=== PATIENT | female | born 2000 | race Caucasian/White ===

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

== ENCOUNTER 2018-01-05 06:02 | Inpatient (IN) ==
[2018-01-05] MEDS ORDERED: Oxytocin 30 Units/500ml Premix 30 UNITS/500 ML BAG IV.SIG PRN (07:05)
[2018-01-05] MEDS ORDERED: Sodium Chlor 0.9% Inj 500 ML IV.SIG PRN (07:06)
[2018-01-05] MEDS ORDERED: Sod Chloride 0.9% Inj 1,000 ML IV.CONT PRN (07:06)
[2018-01-05] MEDS ORDERED: Naloxone Inj 0.4 MG/ML Vial IV.PUSH PRN ×2 (07:06→14:53)
[2018-01-05] MEDS ORDERED: Oxytocin 30 Units/500ml Premix 30 UNITS/500 ML BAG IV.SIG ONE (07:06)
[2018-01-05] MEDS ORDERED: fentaNYL Citrate Inj 100 MCG/2 ML Ampul IV.PUSH PRN ×2 (07:06)
[2018-01-05] MEDS ORDERED: Citric Acid/Sodium Citrate Liq 30 ML UDC PO SCH (07:15)
[2018-01-05 07:39] LABS: Baso % (Auto) 0.1 % (0.0-2.0); Eos # (Auto) 0.1 th/mm3 (0.0-0.4); Eos % (Auto) 0.5 % (0.0-4.0); Hemoglobin 11.1 gm/dL (11.6-15.3); Lymph % (Auto) 15.4 % (9.0-44.0); Mean Corpuscular HGB Conc 32.6 % (32.0-36.0); Mean Corpuscular Hemoglobin 26.7 pg (27.0-34.0); Mean Corpuscular Volume 81.9 fL (80.0-100.0); Mean Platelet Volume 8.7 fL (7.0-11.0); Mono # (Auto) 0.7 th/mm3 (0.0-0.9); Mono % (Auto) 5.5 % (0.0-8.0); Neut # (Auto) 10.4 th/mm3 (1.8-7.7); Neut % (Auto) 78.5 % (16.0-70.0); Platelet Count 284 th/mm3 (150-450); Red Blood Count 4.16 mil/mm3 (4.00-5.30); Red Cell Distribution Width 14.6 % (11.6-17.2); White Blood Count 13.3 th/mm3 (4.0-11.0)
[2018-01-05 07:52] LABS: Bacteria,Urine Occasional /hpf; Bilirubin,Urine Negative (Negative); Clarity,Urine Hazy (Clear); Color,Urine Yellow (Yellw/Straw); Glucose,Urine (UA) Negative (Negative); Leukocyte Esterase,Urine Negative (Negative); Mucus,Urine Few /lpf (Occasional); Nitrite,Urine Negative (Negative); Specific Gravity,Urine 1.023 (1.002-1.035); Squamous Epithelial Cell,Urine 7 /hpf (0-5)
[2018-01-05 08:01] LABS: Amphetamine Urine With Conf Neg (Neg); Benzodiazepine Urine With Conf Neg (Neg)
--- NOTE | 2018-01-05 08:02 | P.OBLABOR ---
Subjective Interval history: pt comfortable Objective Vital Signs: Vital Signs - 8 hr 01/05/18 06:30 01/05/18 07:06 Temperature 98.2 F Pulse Rate 122 H 106 H Respiratory Rate 18 Blood Pressure 152/88 H 146/95 H Objective: Pelvic Exam: Cervix: [-] Dilatation: [-] 3 Effacement: [-] 50 Station: [-] -1 Presentation: [-] vtx Membranes: [intact or ruptured] arom clear Uterine Contractions: [-] rare FHT's: Category: [-] 1 Baseline: [-] 140 Reactive: [-] R Variability: [-] good Decels: [-] Weeks Gestation: 40 Patient Started Active Labor: Yes Active Labor Start Date: 01/05/18 Active Labor Start Time: 08:01 Medical Induction of Labor: Yes Medical Induction Start Date: 01/05/18 Medical Induction Start Time: 08:01 Artificial Rupture of Membrane: Yes Artificial ROM Date: 01/05/18 Artificial ROM Time: 08:01 Assessment and Plan - Diagnosis (1) Code(s): Z34.90 - Encounter for supervision of normal , unspecified, unspecified trimester Status: Acute - Plan IUP at term, arom clear, pitocin aug prn, analgesia prn anticipate Discharge Planning: routine - Attending Attestation pt seen by mt (1) Qualifiers: Weeks of gestation: 40 weeks Qualified Code(s): Z3A.40 - 40 weeks gestation of
--- NOTE | 2018-01-05 08:50 | MH ---
cc: Samantha Johnston MD DATE OF ADMISSION: 01/05/2018 HISTORY OF PRESENT ILLNESS: She is 17 years old, 1, para 0. Intrauterine at 40 weeks with favorable cervix. care has been with [facility]. Her GCT was normal. Group B strep was negative. PAST OBSTETRIC HISTORY: She is 1, para 0. PAST GYNECOLOGICAL HISTORY: She denies. PAST MEDICAL HISTORY: She has a history of depression at the age of 14, has been taking Zoloft in the . PAST SURGICAL HISTORY: She denies. SOCIAL HISTORY: She denies toxic habits. MEDICATIONS: She has been taking vitamins and Zoloft, which was 50 mg. ALLERGIES: SHE IS ALLERGIC TO KEFLEX AND SULFA. PHYSICAL EXAMINATION: VITAL SIGNS: Stable. Blood pressure was 130/68 in the office. HEAD, HEART, CHEST, LUNG: Exams are within normal limits. ABDOMEN: Soft, nontender, gravid. PELVIC: Vaginal exam in the office was 3 cm dilated, 50% effaced, -1 station. EXTREMITIES: No edema, cyanosis, or clubbing. Nontender. ASSESSMENT: She is 17 years old, 1, para 0, intrauterine at 40 weeks. PLAN: Plan is to admit her for artificial rupture of membranes, followed by Pitocin augmentation of labor, analgesia as needed. Anticipate vaginal delivery. MD JULIAN Perales/lisa , 08:34 AM , 08:38 AM
[2018-01-05 09:23] LABS: Glomerular Filtration Rate Greater Than 89 mL/min (>89)
[2018-01-05 09:27] LABS: Alanine Aminotransferase 15 U/L (9-42); Alkaline Phosphatase 190 U/L (45-117); Total Protein 7.1 g/dL (6.4-8.2)
[2018-01-05 09:30] LABS: Albumin 2.9 g/dL (3.4-5.0); Anion Gap 12 meq/L (5-15); Aspartate Aminotransferase 25 U/L (16-38); Blood Urea Nitrogen 6 mg/dL (7-18); Calcium 8.2 mg/dL (8.5-10.1); Carbon Dioxide 22.1 meq/L (21.0-32.0); Chloride 103 meq/L (98-107); Glucose,Random 87 mg/dL (74-106); Potassium 3.5 meq/L (3.5-5.1); Sodium 137 meq/L (136-145)
[2018-01-05] MEDS ORDERED: fentaNYL 2MCG-Bupiv 0.125% Epi 150 ML EPIDURAL ONE (10:02)
[2018-01-05] MEDS ORDERED: Lidocaaine 1.5%/Epinephrine 1:200,000 PF Inj 5 ML Amp ONE (10:33)
[2018-01-05] MEDS ORDERED: fentaNYL Citrate Inj 100 MCG/2 ML Ampul EPIDURAL ONE (11:59)
[2018-01-05] MEDS ORDERED: fentaNYL 2MCG-Bupiv 0.125% Epi 150 ML EPIDURAL PRN (11:59)
--- NOTE | 2018-01-05 14:52 | P.OBDELI ---
Weeks Gestation: 40 Patient Started Active Labor: Yes Active Labor Start Date: 01/05/18 Active Labor Start Time: 08:00 Medical Induction of Labor: Yes Medical Induction Start Date: 01/05/18 Medical Induction Start Time: 08:00 Artificial Rupture of Membrane: Yes Artificial ROM Date: 01/05/18 Anesthesia: Epidural Episiotomy: none Vaginal Delivery: Normal Presentation: Occiput anterior Nuchal Cord: None Delayed Cord Clamping (45 sec): Yes Placenta: Spontaneous delivery Laceration: 1 deg Repair: Chromic interrupted Estimated blood loss (mL): 250 Infant: Male ( 9/9)
[2018-01-05] MEDS ORDERED: Witch Hazel 50%/Glyderin 12.5% 40 Pad Jar RECTAL PRN (14:53)
[2018-01-05] MEDS ORDERED: Benzocaine 20% Top Spray 60 ML Can TOPICAL PRN (14:53)
[2018-01-05] MEDS ORDERED: Oxytocin 30 Units/500ml Premix 30 UNITS/500 ML BAG IV.CONT PRN (14:53)
[2018-01-05] MEDS ORDERED: Zolpidem Tartrate 5 MG Tablet PO PRN (14:53)
[2018-01-05] MEDS ORDERED: Bisacodyl 10 MG Supp RECTAL PRN (14:53)
[2018-01-05] MEDS ORDERED: Diphtheria/Tetanus/Pertussis Vaccine Inj 0.5 ML Syringe IM ONE (16:00)
[2018-01-05] MEDS ORDERED: Measles/Mumps/Rubella Vaccine Inj 0.5 ML Vial SQ ONE (16:00)
[2018-01-05] MEDS: Acetaminophen 325 MG Tablet PO PRN (23:59)
--- NOTE | 2018-01-06 08:16 | P.PNOB ---
Subjective Post day: 1 Interval history: PPD#1; S/P , Breast and bottle feeding, Will take her ZOLOFT from home, 50mg daily. Mood stable; anticipate discharge PPD#2 Objective Vital Signs/I&O: Vital Signs 01/05/18 08:46 01/05/18 09:34 01/05/18 09:35 Temperature 98.3 F Pulse Rate 101 H 87 Respiratory Rate 18 Blood Pressure 136/81 139/85 01/05/18 10:00 01/05/18 10:01 01/05/18 10:10 Temperature Pulse Rate 86 95 H 95 H Respiratory Rate Blood Pressure 131/94 H 01/05/18 10:25 01/05/18 10:35 01/05/18 10:40 Temperature Pulse Rate 87 88 99 H Respiratory Rate Blood Pressure 109/61 01/05/18 10:47 01/05/18 10:51 01/05/18 10:55 Temperature Pulse Rate 94 H 82 73 Respiratory Rate Blood Pressure 126/82 122/68 127/68 01/05/18 11:00 01/05/18 11:01 01/05/18 11:11 Temperature Pulse Rate 74 85 87 Respiratory Rate Blood Pressure 124/67 124/77 01/05/18 11:25 01/05/18 11:27 01/05/18 11:55 Temperature Pulse Rate 96 H 91 H Respiratory Rate 17 Blood Pressure 133/77 134/78 01/05/18 12:00 01/05/18 12:01 01/05/18 12:10 Temperature Pulse Rate 94 H 95 H 97 H Respiratory Rate Blood Pressure 104/48 L 01/05/18 12:25 01/05/18 12:30 01/05/18 12:35 Temperature 99.0 F Pulse Rate 93 H 92 H 96 H Respiratory Rate 17 Blood Pressure 144/90 H 152/91 H 01/05/18 12:40 01/05/18 12:55 01/05/18 13:01 Temperature Pulse Rate 94 H 95 H 94 H Respiratory Rate Blood Pressure 148/61 H 01/05/18 13:05 01/05/18 13:10 01/05/18 13:15 Temperature Pulse Rate 88 93 H 95 H Respiratory Rate Blood Pressure 01/05/18 13:28 01/05/18 14:15 01/05/18 14:45 Temperature Pulse Rate 93 H 104 H 101 H Respiratory Rate Blood Pressure 112/54 L 122/62 01/05/18 14:50 01/05/18 14:55 01/05/18 15:00 Temperature 98.1 F Pulse Rate 109 H 101 H Respiratory Rate 17 Blood Pressure 139/77 139/89 01/05/18 15:15 01/05/18 15:31 01/05/18 15:43 Temperature Pulse Rate 92 H Respiratory Rate 18 17 Blood Pressure 131/70 01/05/18 15:46 01/05/18 16:00 01/05/18 16:13 Temperature Pulse Rate 104 H 91 H Respiratory Rate 15 Blood Pressure 103/68 116/71 01/05/18 16:45 01/05/18 18:00 01/05/18 20:00 Temperature 98.9 F 97.9 F Pulse Rate 92 H 105 H 120 H Respiratory Rate 16 18 Blood Pressure 126/74 138/81 129/73 01/06/18 08:00 Temperature 97.9 F Pulse Rate 86 Respiratory Rate 20 Blood Pressure 131/75 Intake & Output 01/05/18 01/06/18 01/06/18 18:59 06:59 18:59 Weight 86 kg Other: Weight On Admission 86 kg Result Diagrams: 01/05/18 06:30 01/05/18 06:30 Objective Remarks: GENERAL: Well-nourished, well-developed patient. CARDIOVASCULAR: Regular rate and rhythm without murmurs, gallops, or rubs. RESPIRATORY: Breath sounds equal bilaterally. No accessory muscle use. ABDOMEN/GI: Abdomen soft, non-tender. Fundus: Firm, non-tender at umbilicus. GENITOURINARY: Light to moderate bleeding. EXTREMITIES: No cyanosis or edema, non-tender, without signs of DVT. Medications and IVs: Active Medications Acetaminophen (Tylenol) 650 mg PO Q4H PRN PRN Reason: PAIN SCALE 1 TO 2 Last Admin: 01/05/18 23:59 Dose: 650 mg Al Hydroxide/Mg Hydroxide (Milk Of Magnparis Liq) 30 ml PO Q12H PRN PRN Reason: Mild Constipation Benzocaine (Americaine 20% [place]) 1 spray TOPICAL Q4H PRN PRN Reason: For Perineum Discomfort Bisacodyl (Dulcolax Supp) 10 mg RECTAL DAILY PRN PRN Reason: SEVERE CONSITIPATION Citric Acid/Sodium Citrate (Sodium Citrate/Citric Acid Liq) 30 ml PO [employer] [facility] Stop: 01/09/18 07:14 Ephedrine Sulfate (Ephedrine/Ns Syringe) 10 mg IV.PUSH UNSCH PRN PRN Reason: SEE LABEL COMMENTS Stop: 01/06/18 12:00 Fentanyl Citrate (Fentanyl Inj) 50 mcg IV.PUSH Q1H PRN PRN Reason: Pain Scale 3 - 5 Fentanyl Citrate (Fentanyl Inj) 100 mcg IV.PUSH Q1H PRN PRN Reason: PAIN SCALE 6 TO 10 Last Admin: 01/05/18 09:38 Dose: 100 mcg Oxytocin (Pitocin 30 Units/Ns 500 Ml Premix) 30 units in 500 mls @ 2 mls/hr IV.SIG TITRATE PRN; Protocol PRN Reason: For induction of labor Last Admin: 01/05/18 08:50 Dose: 2 milliunit/min, 2 mls/hr Lactated Ringer's (Lr 1000 Ml Inj) 1,000 mls @ 3,000 mls/hr IV.SIG UNSCH PRN PRN Reason: compromise or epidural Last Admin: 01/05/18 12:45 Dose: 3,000 mls/hr Sodium Chloride (Ns Inj) 500 mls @ 1,000 mls/hr IV.SIG UNSCH PRN PRN Reason: SEE LABEL COMMENTS Sodium Chloride (Ns Inj) 1,000 mls @ 100 mls/hr IV.CONT .Q10H PRN PRN Reason: SEE LABEL COMMENTS Lactated Ringer's (Lr 1000 Ml Inj) 1,000 mls @ 125 mls/hr IV.CONT .Q8H [facility] Last Admin: 01/05/18 17:16 Dose: Not Given Fentanyl/Bupivacaine/Sodium Chlor (Fentanyl 2 Mcg-Bupiv 0.125% Epi) 150 mls @ 12 mls/hr EPIDURAL PRN PRN PRN Reason: for Labor Pain Last Admin: 01/05/18 12:46 Dose: 12 mls/hr Oxytocin (Pitocin 30 Units/Ns 500 Ml Premix) 30 units in 500 mls @ 100 mls/hr IV.CONT UNSCH PRN PRN Reason: Heavy bleeding Ibuprofen (Motrin) 800 mg PO Q8H PRN PRN Reason: For Cramping Last Admin: 01/05/18 23:59 Dose: 800 mg Lactulose (Lactulose Liq) 30 ml PO DAILY PRN PRN Reason: SEVERE CONSITIPATION Lidocaine HCl (Xylocaine 1% Inj) 0.1 ml I-DERMAL PRN PRN PRN Reason: For IV start Stop: 01/08/18 07:05 Lidocaine HCl (Xylocaine 1% Inj) 10 ml INFILTRATN PRN PRN PRN Reason: For episiotomy repair Stop: 01/07/18 07:05 Mineral Oil (Muri-Lube Oil) 10 ml TOPICAL PRN PRN PRN Reason: PRN perineal massage Miscellaneous Information (Misc Information) 1 each OTHER UNSCH PRN PRN Reason: SEE LABEL COMMENTS Stop: 01/06/18 12:00 Miscellaneous Information (Misc Information) 1 each OTHER UNSCH PRN PRN Reason: SEE LABEL COMMENTS Stop: 01/06/18 12:00 Naloxone HCl (Narcan Inj) 0.1 mg IV.PUSH Q2M PRN PRN Reason: for opiate reversal Naloxone HCl (Narcan Inj) 0.1 mg IV.PUSH Q2M PRN PRN Reason: for opiate reversal Ondansetron HCl (Zofran Inj) 4 mg IV.PUSH Q6H PRN PRN Reason: NAUSEA OR VOMITING Ondansetron HCl (Zofran Odt) 4 mg PO Q6H PRN PRN Reason: NAUSEA OR VOMITING Vit/Calcium/Iron/Folic Ac (Stuartnatal Plus 3) 1 tab PO DAILY YUE Senna/Docusate Sodium (Marixa-Colace) 1 tab PO BID YUE Last Admin: 01/06/18 00:00 Dose: Not Given Sennosides (Senokot) 17.2 mg PO Q12H PRN PRN Reason: Moderate Constipation Sodium Chloride (Ns Flush) 2 ml IV.FLUSH BID YUE Sodium Chloride (Ns Flush) 2 ml IV.FLUSH PRN PRN PRN Reason: FLUSH AFTER USING IV ACCESS Witch Corine/Glycerin (Tucks Pads) 1 applicatio RECTAL QID PRN PRN Reason: HEMORRHOIDS Zolpidem Tartrate (Ambien) 5 mg PO HS PRN PRN Reason: SLEEP Assessment and Plan - Diagnosis (1) Code(s): Z34.90 - Encounter for supervision of normal , unspecified, unspecified trimester Status: Acute - Plan PPD#1, Stable, transitioning well, will use her ZOLOFT 50 mg daily; Plan discharge tomorrow, PPD#2 Discharge Planning: routine; PPD#2 (1) Qualifiers: Weeks of gestation: 40 weeks Qualified Code(s): Z3A.40 - 40 weeks gestation of
[2018-01-06] MEDS: Senna/Docusate Sodium 8.6/50 MG Tablet PO SCH ×3 (09:31→22:17)
[2018-01-06] MEDS: Prenatal Vit/Ca/Iron/Folic Acid Tablet PO SCH (09:31)
[2018-01-06] MEDS: Acetaminophen 325 MG Tablet PO PRN (09:32)
[2018-01-06] MEDS: guaiFENesin 600 MG ER Tablet PO SCH (21:13)
--- NOTE | 2018-01-07 07:00 | P.PNOB ---
Subjective Post day: 1 Interval history: Doing well, pain controlled, ambulating without difficulty, voiding spontaneously, vaginal bleeding less than menses Objective Vital Signs/I&O: Vital Signs 01/06/18 08:00 01/06/18 20:00 Temperature 97.9 F 98.3 F Pulse Rate 86 104 H Respiratory Rate 20 18 Blood Pressure 131/75 138/93 H Result Diagrams: 01/05/18 06:30 01/05/18 06:30 Objective Remarks: GENERAL: Well-nourished, well-developed patient. CARDIOVASCULAR: Regular rate and rhythm without murmurs, gallops, or rubs. RESPIRATORY: Breath sounds equal bilaterally. No accessory muscle use. ABDOMEN/GI: Abdomen soft, non-tender. Fundus: Firm, non-tender at umbilicus. GENITOURINARY: Light to moderate bleeding. EXTREMITIES: No cyanosis or edema, non-tender, without signs of DVT. Medications and IVs: Active Medications Acetaminophen (Tylenol) 650 mg PO Q4H PRN PRN Reason: PAIN SCALE 1 TO 2 Last Admin: 01/06/18 09:32 Dose: 650 mg Al Hydroxide/Mg Hydroxide (Milk Of Magnesia Liq) 30 ml PO Q12H PRN PRN Reason: Mild Constipation Benzocaine (Americaine 20% [place]) 1 spray TOPICAL Q4H PRN PRN Reason: For Perineum Discomfort Bisacodyl (Dulcolax Supp) 10 mg RECTAL DAILY PRN PRN Reason: SEVERE CONSITIPATION Citric Acid/Sodium Citrate (Sodium Citrate/Citric Acid Liq) 30 ml PO CULTURIST [facility] Stop: 01/09/18 07:14 Fentanyl Citrate (Fentanyl Inj) 50 mcg IV.PUSH Q1H PRN PRN Reason: Pain Scale 3 - 5 Fentanyl Citrate (Fentanyl Inj) 100 mcg IV.PUSH Q1H PRN PRN Reason: PAIN SCALE 6 TO 10 Last Admin: 01/05/18 09:38 Dose: 100 mcg Guaifenesin (Mucinex Er) 600 mg PO BID [facility] Last Admin: 01/06/18 21:13 Dose: 600 mg Oxytocin (Pitocin 30 Units/Ns 500 Ml Premix) 30 units in 500 mls @ 2 mls/hr IV.SIG TITRATE PRN; Protocol PRN Reason: For induction of labor Last Admin: 01/05/18 08:50 Dose: 2 milliunit/min, 2 mls/hr Lactated Ringer's (Lr 1000 Ml Inj) 1,000 mls @ 3,000 mls/hr IV.SIG UNSCH PRN PRN Reason: compromise or epidural Last Admin: 01/05/18 12:45 Dose: 3,000 mls/hr Sodium Chloride (Ns Inj) 500 mls @ 1,000 mls/hr IV.SIG UNSCH PRN PRN Reason: SEE LABEL COMMENTS Sodium Chloride (Ns Inj) 1,000 mls @ 100 mls/hr IV.CONT .Q10H PRN PRN Reason: SEE LABEL COMMENTS Lactated Ringer's (Lr 1000 Ml Inj) 1,000 mls @ 125 mls/hr IV.CONT .Q8H YUE Last Admin: 01/07/18 05:21 Dose: Not Given Fentanyl/Bupivacaine/Sodium Chlor (Fentanyl 2 Mcg-Bupiv 0.125% Epi) 150 mls @ 12 mls/hr EPIDURAL PRN PRN PRN Reason: for Labor Pain Last Admin: 01/05/18 12:46 Dose: 12 mls/hr Oxytocin (Pitocin 30 Units/Ns 500 Ml Premix) 30 units in 500 mls @ 100 mls/hr IV.CONT UNSCH PRN PRN Reason: Heavy bleeding Ibuprofen (Motrin) 800 mg PO Q8H PRN PRN Reason: For Cramping Last Admin: 01/06/18 20:51 Dose: 800 mg Lactulose (Lactulose Liq) 30 ml PO DAILY PRN PRN Reason: SEVERE CONSITIPATION Lidocaine HCl (Xylocaine 1% Inj) 0.1 ml I-DERMAL PRN PRN PRN Reason: For IV start Stop: 01/08/18 07:05 Lidocaine HCl (Xylocaine 1% Inj) 10 ml INFILTRATN PRN PRN PRN Reason: For episiotomy repair Stop: 01/07/18 07:05 Mineral Oil (Muri-Lube Oil) 10 ml TOPICAL PRN PRN PRN Reason: PRN perineal massage Naloxone HCl (Narcan Inj) 0.1 mg IV.PUSH Q2M PRN PRN Reason: for opiate reversal Naloxone HCl (Narcan Inj) 0.1 mg IV.PUSH Q2M PRN PRN Reason: for opiate reversal Ondansetron HCl (Zofran Inj) 4 mg IV.PUSH Q6H PRN PRN Reason: NAUSEA OR VOMITING Ondansetron HCl (Zofran Odt) 4 mg PO Q6H PRN PRN Reason: NAUSEA OR VOMITING Vit/Calcium/Iron/Folic Ac (Stuartnatal Plus 3) 1 tab PO DAILY [facility] Last Admin: 01/06/18 09:31 Dose: 1 tab Pseudoephedrine HCl (Sudafed) 30 mg PO Q6H PRN PRN Reason: NASAL CONGESTION Last Admin: 01/07/18 05:29 Dose: 30 mg Senna/Docusate Sodium (Marixa-Colace) 1 tab PO BID [facility] Last Admin: 01/06/18 22:17 Dose: Not Given Sennosides (Senokot) 17.2 mg PO Q12H PRN PRN Reason: Moderate Constipation Sodium Chloride (Ns Flush) 2 ml IV.FLUSH BID [facility] Last Admin: 01/06/18 22:17 Dose: Not Given Sodium Chloride (Ns Flush) 2 ml IV.FLUSH PRN PRN PRN Reason: FLUSH AFTER USING IV ACCESS Witch Corine/Glycerin (Tucks Pads) 1 applicatio RECTAL QID PRN PRN Reason: HEMORRHOIDS Zolpidem Tartrate (Ambien) 5 mg PO HS PRN PRN Reason: SLEEP Assessment and Plan - Diagnosis (1) Code(s): Z34.90 - Encounter for supervision of normal , unspecified, unspecified trimester Status: Acute - Plan 17-year-old status post at 40 weeks 1. day #2, meeting milestones, discharge home today, discussed precautions expectations and follow-up. - male status post circumcision 2. Depression/anxiety: Continue home Zoloft, follow-up with mood check in 1-2 weeks. (1) Qualifiers: Weeks of gestation: 40 weeks Qualified Code(s): Z3A.40 - 40 weeks gestation of
--- NOTE | 2018-01-07 07:29 | P.DS ---
Date of admission: 01/05/18 06:02 Primary care physician: Clotilde Primary Care Physician Brief History from admission: 17 yo who presented for elective IOL had a at 40w, course uncomplicated DS: Diagnosis - Discharge Diagnosis (1) Status: Acute DS: Medications - Discharge Medications Prescriptions: ibuprofen 800 mg PO Q8H PRN #30 tab PRN Reason: For Cramping DS: Summary Hospital Course: see brief history - Time Spent with Patient Total time spent providing and/or coordinating discharge services: Less than 30 minutes Exam Vital signs: Vital Signs 01/06/18 08:00 01/06/18 20:00 Temperature 97.9 F 98.3 F Pulse Rate 86 104 H Respiratory Rate 20 18 Blood Pressure 131/75 138/93 H Results Procedures completed during hospitalization: Discharge Plan - Discharge Disposition Patient Disposition: 01 Discharge Home - Discharge Condition Condition: Good - Discharge Order Discharge Orders: Discharge Order (Routine); Ordered 01/07/18 Ordered By: Raghu Houser - Physicians Team Primary Care Provider: Primary Clotilde Morales Attending Provider: Samantha Johnston Rxs /Orders / Referrals /Forms Prescriptions: New ibuprofen 800 mg Tablet 800 mg PO Q8H PRN (Reason: For Cramping) Qty: 30 RF: 1 Continue tablet 1 tab PO DAILY Zoloft 75 mg PO DAILY Referrals: Primary Care Clotilde Geller [Primary Care Provider] - See Instructions - Discharge Instructions Patient Printed Instructions: Caring for Your Baby (DC), Bleeding ( DC), Vaginal Delivery (DC) Additional Instructions: call to make 2 week visit
[2018-01-07 09:20] VITALS: BP 145/91; PULSE 101; RESP 20; TEMP 97.9
[2018-01-07] MEDS: Senna/Docusate Sodium 8.6/50 MG Tablet PO SCH (09:36)
[2018-01-07] MEDS: Prenatal Vit/Ca/Iron/Folic Acid Tablet PO SCH (09:40)
[2018-01-07] MEDS: guaiFENesin 600 MG ER Tablet PO SCH (09:40)
== END 2018-01-07 11:55 | disposition home or self-care (01) ==
LOC: H2E 06:02 → H1EA 17:11
PROVIDERS: ADMIT Obstetrics & Gynecology; ATTEND Obstetrics & Gynecology